=== PATIENT | male | born 1980 | race African-American/Black ===

== ENCOUNTER 2025-05-03 14:59 | Emergency (ER) | payer SELFPAY ==
[~2025-05-03] VITALS: Ht 180.3 cm; Wt 90.0 kg
[2025-05-03 15:04] VITALS: O2SAT 95
[2025-05-03 15:15] VITALS: BP 0/0; PULSE 0; RESP 0; TEMP 36.3; O2SAT 72
== END 2025-05-03 16:08 ==
LOC: ER 14:59
DX: I46.9 Cardiac arrest, cause unspecified (principal)
CPT/HCPCS: 36680; 92950; 92960; 94070; 94664; 99285